=== PATIENT | female | born 1955 | race Caucasian/White ===

== ENCOUNTER 2019-01-23 10:05 | Emergency (ER) | payer MEDICARE ==
--- NOTE | 2019-01-23 11:13 | UC ---
Skin Complaint HPI - HPI Summary HPI Summary: 63-year-old female who started experiencing some pain around her left cheek, left forehead the left side of her nose and then noted a rash this morning to her left forehead with some left eye pain. She has recently been under a lot of stress because of a sibling who recently. - History of Current Complaint Chief Complaint: UCGeneralIllness Time Seen by Provider: 01/23/19 10:51 Stated Complaint: LEFT EYE COMPLAINT Hx Obtained From: Patient ?: No Onset/Duration: Gradual Onset Skin Exposure Onset/Duration: Days Ago - Symptoms started on Monday. Timing: Constant Onset Severity: Mild Current Severity: Moderate Pain Intensity: 10 Location: Face - Left orbit, for head and cheek. Character: Redness, Painful Aggravating Factor(s): Touch Alleviating Factor(s): Nothing Associated Signs & Symptoms: Positive: Tenderness - Allergy/Home Medications Allergies/Adverse Reactions: Allergies Allergy/AdvReac Type Severity Reaction Status Date / Time No Known Allergies Allergy Verified 01/23/19 10:53 Home Medications: Home Medications Phenylephrine HCl/Acetaminophn [Vicks Sinex Daytime Conge 5-325 mg] 1 cap PO Q4H 01/23/19 [History Confirmed 01/23/19] guaiFENesin [Mucinex] 600 mg PO Q8H 01/23/19 [History Confirmed 01/23/19] PMH/Surg Hx/FS Hx/Imm Hx Previously Healthy: Yes - Surgical History Surgical History: None - Family History Known Family History: Positive: Non-Contributory - Social History Alcohol Use: Occasionally Substance Use Type: None Smoking Status (MU): Never Smoked Tobacco Review of Systems All Other Systems Reviewed And Are Negative: Yes Skin: Positive: Rash - Rash left forehead which patient noted this morning. Eyes: Positive: Eye Redness - Left eye redness and pain.. Negative: Drainage ENT: Positive: Other - Mild pain on left side of her nose and left cheek. Psychological: Positive: Other - Patient is under a lot of stress recently after her brother last week. Is Patient Immunocompromised?: No Physical Exam Triage Information Reviewed: Yes Appearance: Well-Appearing, No Pain Distress, Well-Nourished Vital Signs: Initial Vital Signs Temp 98.2 F 01/23/19 10:48 Pulse 85 01/23/19 10:48 Resp 18 01/23/19 10:48 BP 142/77 01/23/19 10:48 Pulse Ox 100 01/23/19 10:48 Vital Signs Reviewed: Yes Eyes: Positive: Other: - Left sclera is red, no drainage. PERRLA EOMI. Patient has some discomfort during testing of the extraocular muscles of the left eye. ENT: Positive: Pharynx normal, TMs normal - No lesions in ear canal., Uvula midline Neck: Positive: Supple, Nontender, No Lymphadenopathy Respiratory: Positive: Lungs clear, Normal breath sounds, No respiratory distress, No accessory muscle use Cardiovascular: Positive: RRR, No Murmur, Pulses Normal, Brisk Capillary Refill Musculoskeletal Exam: Normal Neurological Exam: Normal Psychological Exam: Normal Skin: Positive: Rashes - Patient has tenderness left-sided nose, left cheek, round orbit and left before head. There is a mildly reddened rash left forehead into her hairline. Course/Dx - Course Course Of Treatment: I'm going to start patient on valacyclovir and she is to go directly to Dr. Caldwell, ged teacher, for further evaluation of the eye involvement. - Diagnoses Provider Diagnosis: Shingles Discharge ED - Sign-Out/Discharge Documenting (check all that apply): Patient Departure All imaging exams completed and their final reports reviewed: No Studies - Discharge Plan Condition: Fair Disposition: HOME Prescriptions: ValACYclovir (*) [Valtrex 1 GM(*)] 1 gm PO TID 7 Days #21 tab Patient Education Materials: Shingles (ED) Referrals: Smiley Caldwell MD [Medical Doctor] - No Primary Care Phys,NOPCP [Primary Care Provider] - Additional Instructions: Go directly to the [facility] now and see Dr. Caldwell. - Billing Disposition and Condition Condition: FAIR Disposition: Home
== END 2019-01-23 11:11 | disposition home or self-care (01) ==
LOC: UCCORT 10:05
DX: B02.9 Zoster without complications (principal)
CPT/HCPCS: 99202; G0463